=== PATIENT | female | born 1985 | race Asian ===

== ENCOUNTER 2020-05-29 15:02 | Inpatient (IN) | payer SELFPAY ==
[~2020-05-29] VITALS: Ht 177.8 cm; Wt 145.1 kg
[2020-05-29] MEDS ORDERED: SODIUM CHLORIDE 0.9% 1,000 ML IV ONE (16:13)
[2020-05-29 17:00] LABS: BASOPHILS % 0.5 % (0.0-2.0); EOSINOPHILS % 1.7 % (0.0-5.0); HEMATOCRIT. 37.7 % (36.0-48.0); HEMOGLOBIN. 12.3 g/dL (12.0-16.0); LYMPHOCYTES % 9.9 % (20.0-50.0); MEAN CORPUSCULAR HEMOGLOBIN 25.2 pg (28.0-32.0); MEAN CORPUSCULAR VOLUME 77.4 fL (81.0-99.0); MEAN PLATELET VOLUME 8.4 fl (7.4-10.4); MONOCYTES % 4.5 % (2.0-8.0); NEUTROPHILS % 83.4 % (40.0-76.0); PLATELET 309 x1000/uL (130-400); RED BLOOD CELL COUNT 4.87 mill/uL (4.2-5.4); RED CELL DISTRIBUTION WIDTH 16.7 % (11.6-14.6)
[2020-05-29 17:07] LABS: CHLORIDE 107 mEq/L (98-107)
[2020-05-29 17:23] LABS: HCG SCREEN NEGATIVE
[2020-05-29 18:43] LABS: CLARITY URINE CLOUDY (CLEAR); COLOR URINE DARK YELLOW (YELLOW); KETONES URINE TRACE (NEGATIVE); LEUKOCYTE ESTERASE URINE TRACE (NEGATIVE); NITRITE URINE NEGATIVE (NEGATIVE); OCCULT BLOOD URINE NEGATIVE (NEGATIVE); PH URINE 5.5 (4.5-8.0); PROTEIN URINE 1+ (NEGATIVE); SPECIFIC GRAVITY URINE 1.026 (1.005-1.030)
[2020-05-29] MEDS ORDERED: ASPIRIN 81MG TABLET PO ONE (18:45)
[2020-05-29] MEDS ORDERED: CEFTRIAXONE 1 G PREMIX 50 ML IV ONE (19:15)
[2020-05-29] MEDS ORDERED: ACETAMINOPHEN 325MG TABLET PO PRN ×2 (20:00)
[2020-05-29] MEDS ORDERED: MAGNESIUM/ALUMINUM HYDROXIDE/SIMETHICONE 30ML UDC PO PRN (20:00)
[2020-05-29] MEDS ORDERED: IPRATROPIUM/ALBUTEROL 0.5-3(2.5)MG/3ML NEB HHN PRN (20:00)
[2020-05-29] MEDS ORDERED: NITROGLYCERIN 0.4MG TABLET SL SL PRN (20:00)
[2020-05-29] MEDS ORDERED: LORAZEPAM 0.5MG TABLET PO PRN (20:00)
[2020-05-29] MEDS ORDERED: KETOROLAC 15MG/ML VIAL IV PRN (20:00)
[2020-05-29] MEDS ORDERED: DOCUSATE SODIUM 100MG CAPSULE PO PRN (20:00)
[2020-05-29] MEDS ORDERED: ONDANSETRON HCL 4MG/2ML INJ IV PRN (20:00)
[2020-05-29] MEDS ORDERED: GUAIFENESIN 200MG/10ML SUGAR FREE UDC PO PRN (20:00)
[2020-05-29] MEDS ORDERED: ENOXAPARIN 40MG/0.4ML SYR SUBCUT SCH (20:00)
[2020-05-29] MEDS ORDERED: LEVOFLOXACIN 750MG PREMIX 150 ML IV NR (20:15)
[2020-05-29] MEDS ORDERED: ZOLPIDEM TARTRATE 5MG TABLET PO PRN (21:00)
[2020-05-29] MEDS: ASCORBIC ACID 500 MG TABLET PO SCH (21:00)
[2020-05-29] MEDS: FAMOTIDINE 20MG TABLET PO SCH (21:00)
[2020-05-29] MEDS: ENOXAPARIN 30MG/0.3ML SYR SUBCUT SCH (21:00)
[2020-05-29 21:18] LABS: *BENZODIAZEPINES SCREEN URINE NEGATIVE (NEGATIVE); *COCAINE SCREEN URINE NEGATIVE (NEGATIVE)
[2020-05-29 21:19] LABS: *AMPHETAMINES SCREEN URINE NEGATIVE (NEGATIVE); *BARBITURATES SCREEN URINE NEGATIVE (NEGATIVE); CANNABINOID URINE SCREEN NEGATIVE (NEGATIVE); METHADONE URINE SCREEN NEGATIVE (NEGATIVE); OPIATES URINE SCREEN NEGATIVE (NEGATIVE); PHENCYCLIDINE URINE SCREEN NEGATIVE (NEGATIVE)
[2020-05-29] MEDS: CLONIDINE 0.1MG TABLET PO PRN (22:05)
[2020-05-29 23:33] LABS: CREATINE KINASE 62 IU/L (26-192)
[2020-05-29 23:34] LABS: CREATINE KINASE MB FRACTION < 1.0 ng/mL (0.5-3.6)
[2020-05-29 23:45] VITALS: BP 140/105
[2020-05-30 01:00] VITALS: BP 140/105
[2020-05-30] MEDS: SODIUM CHLORIDE 0.9% 1,000 ML IV SCH ×2 (01:11→09:54)
[2020-05-30 04:00] VITALS: BP 152/97
[2020-05-30 08:00] VITALS: BP 165/99
[2020-05-30] MEDS ORDERED: CEFTRIAXONE 1 G PREMIX 50 ML IV SCH (09:00)
[2020-05-30 09:15] LABS: CREATINE KINASE 65 IU/L (26-192)
[2020-05-30 09:17] LABS: CREATINE KINASE MB FRACTION < 1.0 ng/mL (0.5-3.6)
[2020-05-30] MEDS: CEFTRIAXONE 1,000 MG in DEXTROSE 5% WATER 50 ML IV SCH (09:52)
[2020-05-30] MEDS: FAMOTIDINE 20MG TABLET PO SCH ×2 (09:52→21:00)
[2020-05-30] MEDS: ZINC SULFATE 220 MG ( 50 ) CAPSULE PO SCH (09:52)
[2020-05-30] MEDS: ASCORBIC ACID 500 MG TABLET PO SCH ×2 (09:52→21:00)
[2020-05-30] MEDS: ENOXAPARIN 30MG/0.3ML SYR SUBCUT SCH ×2 (09:53→21:00)
[2020-05-30 12:00] VITALS: BP 164/102
[2020-05-30] MEDS: CLONIDINE 0.1MG TABLET PO PRN ×2 (13:15→22:07)
[2020-05-30] MEDS: LEVOFLOXACIN 500MG PREMIX 100 ML IV SCH (13:16)
[2020-05-30] MEDS ORDERED: LEVOFLOXACIN 500MG PREMIX 100 ML IV SCH (14:00)
[2020-05-30 16:00] VITALS: BP 154/110
[2020-05-30 20:15] VITALS: BP 166/97
[2020-05-31 00:36] VITALS: BP 161/97
[2020-05-31 04:00] VITALS: BP 167/105
[2020-05-31] MEDS: CLONIDINE 0.1MG TABLET PO PRN ×2 (05:32→09:24)
[2020-05-31 08:00] VITALS: BP 167/113
[2020-05-31] MEDS: ENOXAPARIN 30MG/0.3ML SYR SUBCUT SCH ×2 (09:00→09:25)
[2020-05-31] MEDS: ZINC SULFATE 220 MG ( 50 ) CAPSULE PO SCH (09:24)
[2020-05-31] MEDS: ASCORBIC ACID 500 MG TABLET PO SCH (09:24)
[2020-05-31] MEDS: FAMOTIDINE 20MG TABLET PO SCH (09:25)
[2020-05-31] MEDS: CEFTRIAXONE 1,000 MG in DEXTROSE 5% WATER 50 ML IV SCH (09:25)
[2020-05-31] MEDS ORDERED: AMLODIPINE 5MG TABLET PO SCH (09:30)
[2020-05-31 12:30] VITALS: BP 156/101
[2020-05-31 12:48] VITALS: BP 156/101
[2020-05-31] MEDS: LEVOFLOXACIN 500MG PREMIX 100 ML IV SCH (14:18)
[2020-05-31 16:14] VITALS: BP 153/94
[2020-05-31] MEDS ORDERED: ENOXAPARIN 40MG/0.4ML SYR SUBCUT SCH (21:00)
== END 2020-05-31 18:05 | disposition home or self-care (01) | DRG 204 ==
LOC: ER 15:02 → ENRESERV 21:11 → 6WST 23:37
PROVIDERS: ADMIT Internal Medicine; ATTEND Internal Medicine
DX: R55 Syncope and collapse (principal); E66.01 Morbid (severe) obesity due to excess calories; N39.0 Urinary tract infection, site not specified; I10 Essential (primary) hypertension; R79.89 Other specified abnormal findings of blood chemistry; Z68.41 Body mass index [BMI] 40.0-44.9, adult
CPT/HCPCS: 36415; 71045; 80053; 80061; 80305; 81003; 82550; 82553; 83036; 83605; 83880; 84484; 84703; 85025; 93005; 93970; 99285; J0696; J1650; J1956; J7030; J7060